=== PATIENT | female | born 2000 | race Caucasian/White ===

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

== ENCOUNTER → 2024-05-26 | Outpatient (CLI) | payer OTHER ==
[~2024-05-26] MED LIST changes: +Flonase 0.05% N16 GM; +Sudogest30 MG PO
== END | disposition home or self-care (01) ==
LOC: LAB SHORT 15:37 → LAB 15:37
DX: L40.9 Psoriasis, unspecified (principal)
CPT/HCPCS: 87220